=== PATIENT | female | born 1975 | race Caucasian/White ===

== ENCOUNTER 2020-06-03 09:57 | Inpatient (IN) | payer BC ==
[~2020-06-03] VITALS: Ht 165.1 cm; Wt 75.8 kg
[2020-06-03 10:57] LABS: HEMOGLOBIN 15.2 gm/dl (12.3-15.3); RED BLOOD COUNT 4.62 M/UL (4.00-5.10); WHITE BLOOD COUNT 9.5 K/UL (4.5-11.0)
[2020-06-03 11:23] LABS: BUN/CREATININE RATIO 13 (0-10)
[2020-06-04] MEDS ORDERED: COREG 25MG TAB25 MG PO (01:40)
[2020-06-04] MEDS ORDERED: PAROXETINE HCL20 MG PO (01:41)
[2020-06-04] MEDS ORDERED: PROTONIX 40 MG40 M1 PO (02:29)
[2020-06-04] MEDS ORDERED: NORVASC10 MG PO (02:29)
[2020-06-04] MEDS ORDERED: ZESTRIL 40 MG T40 MG PO (02:30)
[2020-06-04 04:07] LABS: HEMOGLOBIN 12.1 gm/dl (12.3-15.3); RED BLOOD COUNT 3.74 M/UL (4.00-5.10); WHITE BLOOD COUNT 6.7 K/UL (4.5-11.0)
[2020-06-04 04:47] LABS: BUN/CREATININE RATIO 7 (0-10)
[2020-06-05 02:48] LABS: HEMOGLOBIN 11.7 gm/dl (12.3-15.3); RED BLOOD COUNT 3.63 M/UL (4.00-5.10); WHITE BLOOD COUNT 5.3 K/UL (4.5-11.0)
[2020-06-05 03:07] LABS: BUN/CREATININE RATIO 12 (0-10)
[2020-06-05] MEDS ORDERED: PRAVACHOL40 MG PO (11:16)
[2020-06-05] MEDS ORDERED: CALCIUM500 M1 PO (11:16)
[2020-06-05] MEDS ORDERED: NICOTINE PATCH1 EAC1 TOP (11:16)
== END 2020-06-05 15:45 | disposition home or self-care (01) | DRG 440 ==
LOC: ER1 09:57 → CDU 06-04 01:40 → M/S 06-04 01:46
PROVIDERS: Physician Assistant; ADMIT Internal Medicine
DX: K85.20 Alcohol induced acute pancreatitis without necrosis or infection (principal); F10.10 Alcohol abuse, uncomplicated; R74.01 Elevation of levels of liver transaminase levels; Z20.822 Contact with and (suspected) exposure to COVID-19; I10 Essential (primary) hypertension; F17.210 Nicotine dependence, cigarettes, uncomplicated; F41.9 Anxiety disorder, unspecified; M54.9 Dorsalgia, unspecified; Z79.899 Other long term (current) drug therapy; E87.6 Hypokalemia
CPT/HCPCS: 36415; 71045; 80053; 80061; 81001; 82550; 82553; 83690; 83735; 83874; 84100; 84132; 84439; 84443; 84484; 85025; 85027; 87040; 93005; 94640; 94760; 96365; 96366; 96372; 96375; 96376; 99285; C9113; J1650; J2270; J2405; J2550; J3411; J3475; J7030; Q9967; U0002

== ENCOUNTER → 2020-07-21 | Outpatient (CLI) | payer BC ==
[~2020-07-21] MED LIST: CALCIUM500 M1 PO; COREG 25MG TAB25 MG PO; NICOTINE PATCH1 EAC1 TOP; NORVASC10 MG PO; PAROXETINE HCL20 MG PO; PRAVACHOL40 MG PO; PROTONIX 40 MG40 M1 PO; ZESTRIL 40 MG T40 MG PO; ZOFRAN ODT 4 MG4 MG PO
== END ==
LOC: KOH-I 12:54
DX: S83.206A Unspecified tear of unspecified meniscus, current injury, right knee, initial encounter (principal); X58.XXXA Exposure to other specified factors, initial encounter
CPT/HCPCS: 73721

== ENCOUNTER 2020-07-24 23:25 | Emergency (ER) | payer BC ==
[~2020-07-24 23:25] MED LIST changes: -ZOFRAN ODT 4 MG4 MG PO
[2020-07-25 02:05] LABS: HEMOGLOBIN 13.1 gm/dl (12.3-15.3); RED BLOOD COUNT 4.05 M/UL (4.00-5.10); WHITE BLOOD COUNT 12.2 K/UL (4.5-11.0)
[2020-07-25] MEDS ORDERED: ZOFRAN ODT 4 MG4 MG PO (06:38)
== END 2020-07-25 06:48 | disposition home or self-care (01) ==
LOC: ER1 23:25
PROVIDERS: Student in an Organized Health Care Education/Training Program
DX: K25.9 Gastric ulcer, unspecified as acute or chronic, without hemorrhage or perforation (principal); I10 Essential (primary) hypertension; F17.210 Nicotine dependence, cigarettes, uncomplicated
CPT/HCPCS: 71045; 80053; 81001; 82550; 82553; 83605; 83690; 83874; 84484; 84703; 85025; 93005; 94664; 96365; 96375; 99284; J2270; J2405; J7120; Q9967

== ENCOUNTER 2021-06-24 09:57 | Emergency (ER) | payer BC ==
[~2021-06-24 09:57] MED LIST changes: +ZOFRAN ODT 4 MG4 MG PO
[2021-06-24] MEDS ORDERED: FLONASE 0.05% N16 GM (10:14)
== END 2021-06-24 10:30 | disposition home or self-care (01) ==
LOC: ER1 09:57
DX: H65.92 Unspecified nonsuppurative otitis media, left ear (principal); F17.210 Nicotine dependence, cigarettes, uncomplicated
CPT/HCPCS: 99282

== ENCOUNTER → 2021-07-04 | Outpatient (CLI) | payer BC ==
[~2021-07-04] MED LIST changes: +FLONASE 0.05% N16 GM
== END ==
LOC: KOH-I 13:00
DX: H70.92 Unspecified mastoiditis, left ear (principal)
CPT/HCPCS: 70486

== ENCOUNTER 2021-07-23 22:41 | Emergency (ER) | payer BC ==
[2021-07-24 02:47] LABS: HEMOGLOBIN 13.4 gm/dl (12.3-15.3); RED BLOOD COUNT 4.17 M/UL (4.00-5.10); WHITE BLOOD COUNT 9.8 K/UL (4.5-11.0)
[2021-07-24 03:03] LABS: BUN/CREATININE RATIO 34 (0-10)
== END 2021-07-24 05:05 | disposition home or self-care (01) ==
LOC: ER1 22:41
PROVIDERS: Physician Assistant Medical
DX: M54.2 Cervicalgia (principal); J44.9 Chronic obstructive pulmonary disease, unspecified; F17.200 Nicotine dependence, unspecified, uncomplicated
CPT/HCPCS: 70450; 70491; 80053; 82550; 82553; 84484; 85025; 93005; 94640; 94664; 96374; 99284; J1885; J2405; J2930; Q9967